=== PATIENT | female | born 1970 | race Caucasian/White ===

== ENCOUNTER 2018-08-17 14:25 | Emergency (ER) | payer BC, OTHER ==
[~2018-08-17] VITALS: Ht 177.8 cm; Wt 90.7 kg
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
--- NOTE | 2018-08-17 15:20 | NUR ---
CUSTOMER PROGRAM MANAGER AT BEDSIDE.
--- NOTE | 2018-08-17 16:45 | NUR ---
RIGHT ARM POSTERIOR SPLINT APPLIED, SHOULDER SLING IN PLACE. TOLERATED WELL.
[2018-08-17 17:09] VITALS: BP 160/75
--- NOTE | 2018-08-17 17:15 | NUR ---
Patient discharged to home in stable condition. Written and verbal after care instructions given. Patient verbalizes understanding of instruction.
== END 2018-08-17 17:11 | disposition home or self-care (01) ==
LOC: ER 14:27
DX: S52.121A Displaced fracture of head of right radius, initial encounter for closed fracture (principal); S02.2XXA Fracture of nasal bones, initial encounter for closed fracture; M79.632 Pain in left forearm; M25.561 Pain in right knee; I10 Essential (primary) hypertension; J45.909 Unspecified asthma, uncomplicated; Z98.890 Other specified postprocedural states; V03.90XA Pedestrian on foot injured in collision with car, pick-up truck or van, unspecified whether traffic or nontraffic accident, initial encounter; Y93.89 Activity, other specified; Y92.488 Other paved roadways as the place of occurrence of the external cause; Y99.8 Other external cause status
CPT/HCPCS: 29105; 70486; 73090 ×2; 73130; 73564; 99284; A4606; A6402; Z7610